=== PATIENT | female | born 1985 | race Caucasian/White ===

== ENCOUNTER 2017-08-07 11:44 | Emergency (ER) | payer OTHER ==
[2017-08-07 11:48] VITALS: BP 103/66; PULSE 66; TEMP 97.6; BMI 19.3
--- NOTE | 2017-08-07 13:17 | PDOC ---
History of Present Illness - General Chief Complaint: Back Pain Stated Complaint: BACK PAIN Time Seen by Provider: 08/07/17 12:27 History Source: Patient Exam Limitations: No Limitations - History of Present Illness Initial Comments: 08/07/17 13:15 32 yr female with low back pain for 3 days possibly after doing housework. Pt denies trauma, states nausea in the morning and urinary burning. Pt has low back pain across lower back radiates to left buttock. Pt denies fever or chills , neg vomiting. Severity: reports: mild Past History - Past Medical History Allergies/Adverse Reactions: Allergies Allergy/AdvReac Type Severity Reaction Status Date / Time No Known Allergies Allergy Verified 08/07/17 11:48 Home Medications: Ambulatory Orders Loratadine [Claritin -] 10 mg PO DAILY #30 tablet 02/28/13 Ibuprofen [Motrin -] 600 mg PO TID PRN #30 tablet 01/31/14 Ciprofloxacin [Cipro (Restricted To Id)] 250 mg PO BID #6 tablet 08/07/17 Methylprednisolone [Medrol Dose Connor] 4 mg PO ASDIR #21 tablet 08/07/17 Asthma: No Cancer: No Cardiac Disorders: No Diabetes: No HTN: No Seizures: No Thyroid Disease: No - Reproductive History (#): 3 Para: 2 Therapeutic (s) & number: No Spontaneous : 0 - Suicide/Smoking/Psychosocial Hx Smoking Status: No Smoking History: Never smoked Have you smoked in the past 12 months: No Number of Cigarettes Smoked Daily: 0 Information on smoking cessation initiated: No Hx Alcohol Use: No Drug/Substance Use Hx: No Substance Use Type: None Hx Substance Use Treatment: No *Physical Exam - Vital Signs Last Vital Signs Temp Pulse Resp BP Pulse Ox 97.6 F 66 17 103/66 100 08/07/17 11:47 08/07/17 11:47 08/07/17 11:47 08/07/17 11:47 08/07/17 11:47 - Physical Exam General Appearance: Yes: Nourished, Appropriately Dressed HEENT: positive: EOMI, CRISTINA, TMs Normal, Pharynx Normal Neck: positive: Supple. negative: Tender Respiratory/Chest: positive: Lungs Clear, Normal Breath Sounds. negative: Chest Tender Cardiovascular: positive: Regular Rhythm, Regular Rate Gastrointestinal/Abdominal: positive: Normal Bowel Sounds, Tender (suprapubic ) , Soft Musculoskeletal: positive: Normal Inspection, Decreased Range of Motion (ttp lubar spine paraspinal soft tissue , neg rash neg vetebral tenderness). negative: CVA Tenderness, CVA Tenderness (R), CVA Tenderness (L), Vertebral Tenderness Extremity: positive: Normal Capillary Refill, Normal Inspection, Normal Range of Motion Integumentary: positive: Normal Color, Dry, Warm Neurologic: positive: Fully Oriented, Alert, Normal Mood/Affect, Normal Response , Motor Strength 5/5, Other (neg SLR bilaterally, neg leg weakness). negative: Numbness, Sensory Deficit Medical Decision Making - Medical Decision Making 08/07/17 13:44 cc: low back pain for 3 days with nausea in the morning neg saddle anesthesia neg incontinence, urinary burning and urgency denies vaginal bleeding or discharge pain to suprapubic area neg SLR bilaterally will check urine toradol if negative r/o UTI, r/o kidney stone 08/07/17 14:14 08/07/17 15:[address] resulted negative for kidney stones *DC/Admit/Observation/Transfer Diagnosis at time of Disposition: Dysuria, Muscle strain - Discharge Dispostion Disposition: HOME Condition at time of disposition: Good - Prescriptions Prescriptions: Ciprofloxacin [Cipro (Restricted To Id)] 250 mg PO BID #6 tablet Methylprednisolone [Medrol Dose Connor] 4 mg PO ASDIR #21 tablet - Referrals Referrals: Varun Kidd MD [Primary Care Provider] - Dayne Moreno MD [Staff Physician] - - Patient Instructions Additional Instructions: apply warm compresses to lower back every 3-4hrs for 20 minutes take cipro for 3 days for possible urine infection, we will know when the urine culture returns in 2-3 days take naprosyn for pain as directed please follow up with the orthopedist in 3-4 days for follow up if your pain continues or worsens
[2017-08-07 14:00] LABS: URINE APPEARANCE SLCLOUDY; URINE BILIRUBIN NEGATIVE (NEGATIVE); URINE BLOOD 3+ (NEGATIVE); URINE COLOR LTYELLOW; URINE GLUCOSE (UA) NEGATIVE (NEGATIVE); URINE KETONE NEGATIVE (NEGATIVE); URINE NITRITE NEGATIVE (NEGATIVE); URINE PROTEIN NEGATIVE (NEGATIVE); URINE UROBILINOGEN NEGATIVE mg/dL (0.2-1.0)
[2017-08-07] MEDS ORDERED: KETOROLAC TROMETHAMINE 60 MG/2 ML VIAL IM ONE (14:06)
[2017-08-07] MEDS ORDERED: KETOROLAC TROMETHAMINE 60 MG/2 ML VIAL ONE (14:09)
[2017-08-07 14:11] LABS: URINE MUCUS RARE; URINE RBC 8 /hpf (0-3); URINE WBC 9 /hpf (3-5)
[2017-08-07 17:41] LABS: URINE LEUK ESTERASE TRACE (NEGATIVE)
== END 2017-08-07 15:25 | disposition home or self-care (01) ==
LOC: JERFT 11:44
PROC: 3E0233Z Introduction of Anti-inflammatory into Muscle, Percutaneous Approach (ICD-10-PCS; principal; 2017-08-07)
DX: S39.012A Strain of muscle, fascia and tendon of lower back, initial encounter (principal); X50.0XXA Overexertion from strenuous movement or load, initial encounter; Y93.E9 Activity, other interior property and clothing maintenance; Y92.038 Other place in apartment as the place of occurrence of the external cause
CPT/HCPCS: 36415; 74176; 81003; 81015; 84703; 87086; 87491; 87591; 96372; 99281-25

== ENCOUNTER 2018-01-24 12:06 | Emergency (ER) | payer OTHER ==
[2018-01-24 12:16] VITALS: BP 103/63; PULSE 76; TEMP 97.5; BMI 19.3
[2018-01-24] MEDS ORDERED: IBUPROFEN 600 MG TABLET (FP) PO ONE ×3 (13:00→13:49)
[2018-01-24 13:14] LABS: BASO % 1.2 % (0-2.0); EOS % 2.2 % (0-4.5); HEMATOCRIT 33.7 % (32.4-45.2); HEMOGLOBIN 11.1 GM/dL (10.7-15.3); LYMPH % 35.8 % (8-40); MCH 25.9 pg (25.7-33.7); MCHC 32.8 g/dl (32.0-36.0); MEAN CELL VOLUME 79.1 fl (80-96); MEAN PLT VOLUME 7.8 fl (7.5-11.1); MONO % 6.4 % (3.8-10.2); NEUT % 54.4 % (42.8-82.8); PLATELET COUNT 280 K/MM3 (134-434); RBC 4.26 M/mm3 (3.60-5.2); RDW 18.2 % (11.6-15.6); WHITE BLOOD COUNT 5.7 K/mm3 (4.0-10.0)
--- NOTE | 2018-01-24 13:14 | PDOC ---
History of Present Illness - General Chief Complaint: Pain, Acute Stated Complaint: FEET PAIN Time Seen by Provider: 01/24/18 12:23 History Source: Patient Exam Limitations: No Limitations - History of Present Illness Initial Comments: 01/24/18 13:19 33-year-old female with no past medical history presents to the ED with complaints of bilateral heel and ball of foot pain for the past week worsened with standing which she describes as a pins and needle sensation with sharp aching sensation at night. Denies change in activity, complaints of back pain sensory changes distally, skin discoloration or change in temperature. Timing/Duration: 1 week Severity: mild Associated Symptoms: reports: denies symptoms Past History - Travel Traveled outside of the country in the last 30 days: No - Past Medical History Allergies/Adverse Reactions: Allergies Allergy/AdvReac Type Severity Reaction Status Date / Time No Known Allergies Allergy Verified 01/24/18 12:13 Asthma: No Cancer: No Cardiac Disorders: No CVA: No COPD: No Diabetes: No HTN: No Seizures: No Thyroid Disease: No - Reproductive History (#): 3 Para: 2 Therapeutic (s) & number: No Spontaneous : 0 - Immunization History Immunization Up to Date: Yes - Suicide/Smoking/Psychosocial Hx Smoking Status: No Smoking History: Never smoked Have you smoked in the past 12 months: No Number of Cigarettes Smoked Daily: 0 Information on smoking cessation initiated: No Hx Alcohol Use: No Drug/Substance Use Hx: No Substance Use Type: None Hx Substance Use Treatment: No Patient Lives Alone: No Lives with/in: spouse/SO Review of Systems - Review of Systems Able to Perform ROS?: No Constitutional: No: Symptoms Reported Musculoskeletal: Yes: Other (bilateral heel pain) Integumentary: No: Symptoms Reported Neurological: No: Symptoms reported *Physical Exam - Vital Signs Last Vital Signs Temp Pulse Resp BP Pulse Ox 97.5 F L 76 17 103/63 99 01/24/18 12:13 01/24/18 12:13 01/24/18 12:13 01/24/18 12:13 01/24/18 12:13 - Physical Exam General Appearance: Yes: Nourished, Appropriately Dressed Neck: positive: Supple Respiratory/Chest: positive: Lungs Clear, Normal Breath Sounds. negative: Respiratory Distress, Accessory Muscle Use Cardiovascular: positive: Regular Rhythm, Regular Rate. negative: Murmur Gastrointestinal/Abdominal: positive: Soft. negative: Tenderness Extremity: positive: Normal Capillary Refill, Normal Inspection, Normal Range of Motion, Tender (over bilateral sole over calcaneus and generalized MTP joints /proximal phalanges). negative: Pedal Edema Integumentary: positive: Normal Color, Warm, Moist Neurologic: positive: Motor Strength 5/5. negative: Normal Mood/Affect ED Treatment Course - LABORATORY CBC & Chemistry Diagram: 01/24/18 13:10 01/24/18 13:10 - RADIOLOGY Radiology Studies Ordered: Category Date Time Status FOOT-LEFT [RAD] Stat Radiology 01/24/18 13:01 Ordered FOOT-RIGHT [RAD] Stat Radiology 01/24/18 13:01 Ordered Medical Decision Making - Medical Decision Making 01/24/18 13:31 Pt Patient bilateral heel pain worsened with standing for the past week. Patient exam had no sensory or neurovascular findings but did have tenderness over bilateral heels with no deformity edema, or redness. Patient was ordered for an x-ray, Motrin along with blood work to check for diabetes secondary to complaints of pins and needles and sharp pain without obvious causes. 01/24/18 13:43 Laboratory Tests 01/24/18 01/24/18 01/24/18 13:10 13:10 13:15 WBC 5.7 D Hgb 11.1 D Hct 33.7 MCV 79.1 L Plt Count 280 Neutrophils % 54.4 D Sodium 141 Potassium 3.8 Chloride 107 Carbon Dioxide 24 Anion Gap 10 BUN 12 Creatinine 0.5 L Creat Clearance w eGFR > 60 Random Glucose 94 Calcium 8.7 Total Bilirubin 0.2 D AST 12 L ALT 12 Serum , Qual Urine HCG, Qual Negative 01/24/18 13:17 WBC Hgb Hct MCV Plt Count Neutrophils % Sodium Potassium Chloride Carbon Dioxide Anion Gap BUN Creatinine Creat Clearance w eGFR Random Glucose Calcium Total Bilirubin AST ALT Serum , Qual Pending Urine HCG, Qual X-ray negative for acute findings. Patient will be discharged home with recommendations to take Motrin for discomfort and by orthotic gel inserts *DC/Admit/Observation/Transfer Diagnosis at time of Disposition: Foot pain, bilateral - Discharge Dispostion Disposition: HOME Condition at time of disposition: Improved - Referrals Referrals: Varun Kidd MD [Primary Care Provider] - - Patient Instructions Printed Discharge Instructions: DI for Foot Pain Additional Instructions: Please consider purchasing orthotic gel inserts to avoid heel pain and may take Motrin 600 mg every 8 hours for discomfort. You may also try soaking her feet in warm water to alleviate discomfort. - Post Discharge Activity
[2018-01-24 13:42] LABS: ALBUMIN 3.9 g/dl (3.4-5.0); ALK PHOS 49 U/L (45-117); ANION GAP 10 (8-16); BILIRUBIN,TOTAL 0.2 mg/dL (0.2-1.0); BLOOD UREA NITROGEN 12 mg/dL (7-18); CALCIUM 8.7 mg/dL (8.5-10.1); CHLORIDE 107 mmol/L (98-107); CO2 24 mmol/L (21-32); CREATININE 0.5 mg/dL (0.55-1.02); GLUCOSE,RANDOM 94 mg/dL (74-106); POTASSIUM 3.8 mmol/L (3.5-5.1); SGOT/AST 12 U/L (15-37); SGPT/ALT 12 U/L (12-78); SODIUM 141 mmol/L (136-145); TOT PROT 7.2 g/dl (6.4-8.2)
== END 2018-01-24 14:49 | disposition home or self-care (01) ==
LOC: JERFT 12:06
DX: M79.671 Pain in right foot (principal); M79.672 Pain in left foot
CPT/HCPCS: 36415; 73630-TC-LT; 73630-TC-RT-FY; 80053; 84703; 85025; 99281-25

== ENCOUNTER 2019-09-03 03:04 | Inpatient (IN) | payer OTHER ==
[2019-09-03] MEDS: OXYTOCIN 20 UNITS in 0.9% NS 20 UNIT/1,000 ML INFUS.BAG IV SCH (03:21)
[2019-09-03] MEDS ORDERED: AMPICILLIN NA/SULBACTAM NA 1.5 GM in SODIUM CHLORIDE 100 ML IVPB SCH ×2 (04:00→09:00)
[2019-09-03] MEDS ORDERED: ELECTROLYTE-148 SOLN 1,000 ML IV SCH (04:00)
--- NOTE | 2019-09-03 04:28 | HP ---
Past Medical History - Primary Care Physician PCP:: Sena Russell - Admission Chief Complaint: Labor History of Present Illness: 34 yo G P EDC 09/13/19 EGA 38.4 weeks admitted in active labor Hx of CS previous x3 for TOLAC + rom,no bleeding, History Source: Patient Limitations to Obtaining History: No Limitations - Past Medical History ...: 4 ...Para: 3 - Past Surgical History Past Surgical History: Yes: Hx Myomectomy: No Hx Transabdominal Cerclage: No - Smoking History Smoking history: Never smoked Have you smoked in the past 12 months: No Aproximately how many cigarettes per day: 0 - Alcohol/Substance Use Hx Alcohol Use: No History of Substance Use: reports: None Home Medications - Allergies Allergies/Adverse Reactions: Allergies Allergy/AdvReac Type Severity Reaction Status Date / Time No Known Allergies Allergy Verified 01/24/18 12:13 Review of Systems - Review of Systems Constitutional: reports: No Symptoms Eyes: reports: No Symptoms HENT: reports: No Symptoms Neck: reports: No Symptoms Cardiovascular: reports: No Symptoms Respiratory: reports: No Symptoms Gastrointestinal: reports: No Symptoms Genitourinary: reports: No Symptoms Breasts: reports: No Symptoms Reported Musculoskeletal: reports: No Symptoms Integumentary: reports: No Symptoms Neurological: reports: No Symptoms Endocrine: reports: No Symptoms Hematology/Lymphatic: reports: No Symptoms Psychiatric: reports: No Symptoms Physical Exam - Maternity Constitutional: Yes: Well Nourished, No Distress Neck: Yes: WNL Cardiovascular: Yes: WNL Lungs: Clear to auscultation - Abdominal Exam/OB Number of Fetuses: Single Presentation: Vertex Contractions: Yes Category: I - Vaginal Exam/OB Dilatation (cm): 10 Effacement (%): 100 Amniotic Membrane Status: Intact Presentation: Vertex/Position - Physical Exam Musculoskeletal: Yes: WNL Extremities: Yes: WNL Edema: No Problem List - Problems (1) Previous delivery, antepartum Problems reviewed: Yes Code(s): O34.219 - MATERNAL CARE FOR UNSP TYPE SCAR FROM PREVIOUS DEL (2) 38 weeks gestation of Code(s): Z3A.38 - 38 WEEKS GESTATION OF Assessment/Plan Prev CS TOLAC active labor eminent delivery 38 + week Plan
[2019-09-03] MEDS ORDERED: BENZOCAINE 20% 57 GM BOTTLE TP PRN (04:32)
[2019-09-03] MEDS ORDERED: WITCH HAZEL 50% (TUCKS) 40 PAD/JAR PAD TP PRN (04:32)
[2019-09-03] MEDS ORDERED: BENZOCAINE 28 GM HEMORRHOIDAL OINTMENT PR PRN (04:32)
[2019-09-03] MEDS ORDERED: BISACODYL 10 MG SUPP.RECT RC PRN (04:32)
[2019-09-03] MEDS ORDERED: METHYLERGONOVINE MALEATE 0.2 MG/1 ML AMP IM PRN (04:32)
--- NOTE | 2019-09-03 04:34 | PN ---
Delivery - Delivery Vaginal Delivery: No Problems (shoulder delivered with [facility] manuver without comp primary laceration repaired with 20 chromic), Other (post hemorrhage after deliver 500 cc bloods removed) Type of Anesthesia: Local Episiotomy/Laceration: 1st degree (repaired with 2 0 chromic) EBL (cc): 500 Delivery, Single - Stages of Labor Placenta: Yes: Spontaneous - Condition of Infant Gender: Female Position: OA - [place] Feeding Plan Benefits of Exclusively reinforced: Yes
[2019-09-03 04:57] LABS: VENOUS PC02 43.3 mmHg (38-52); VENOUS PH 7.34 (7.31-7.41)
[2019-09-03 04:58] LABS: VENOUS PO2 < 49 mmHg (28-48)
[2019-09-03 05:09] LABS: BASO % 0.5 % (0-2.0); EOS % 0.1 % (0-4.5); HEMATOCRIT 30.7 % (32.4-45.2); HEMOGLOBIN 9.7 GM/dL (10.7-15.3); LYMPH % 4.2 % (8-40); MCH 23.7 pg (25.7-33.7); MCHC 31.7 g/dl (32.0-36.0); MEAN CELL VOLUME 74.9 fl (80-96); MEAN PLT VOLUME 7.7 fl (7.5-11.1); MONO % 2.4 % (3.8-10.2); NEUT % 92.8 % (42.8-82.8); PLATELET COUNT 229 K/MM3 (134-434); RBC 4.11 M/mm3 (3.60-5.2); RDW 19.8 % (11.6-15.6); WHITE BLOOD COUNT 18.1 K/mm3 (4.0-10.0)
[2019-09-03 05:22] LABS: INR 1.04 (0.83-1.09); PROTHROMBIN TIME (PATIENT) 12.3 SEC (9.7-13.0)
[2019-09-03 05:32] LABS: BLOOD UREA NITROGEN 6.5 mg/dL (7-18); CALCIUM 8.2 mg/dL (8.5-10.1); CREATININE 0.5 mg/dL (0.55-1.3); POTASSIUM 3.7 mmol/L (3.5-5.1)
[2019-09-03 06:08] VITALS: BMI 23.6
--- NOTE | 2019-09-03 06:30 | PN ---
Progress Note (short form) - Note Progress Note: Pt with hemorrhage will give 1 unit of blood Problem List - Problems (1) Previous delivery, antepartum Code(s): O34.219 - MATERNAL CARE FOR UNSP TYPE SCAR FROM PREVIOUS DEL (2) 38 weeks gestation of Code(s): Z3A.38 - 38 WEEKS GESTATION OF
[2019-09-03] MEDS ORDERED: OXYTOCIN 20 UNITS in 0.9% NS 20 UNIT/1,000 ML INFUS.BAG IV ONE ×2 (06:46→16:20)
[2019-09-03] MEDS ORDERED: IBUPROFEN 600 MG TABLET (FP) PO ONE ×2 (07:17→15:00)
[2019-09-03] MEDS ORDERED: ACETAMINOPHEN 325 MG TABLET (FP) ONE ×2 (07:18→15:00)
[2019-09-03] MEDS: ACETAMINOPHEN 325 MG TABLET (FP) PO PRN ×3 (07:25→22:47)
[2019-09-03] MEDS: IBUPROFEN 600 MG TABLET (FP) PO PRN ×3 (07:25→22:46)
[2019-09-03 07:45] LABS: BASO % 0.1 % (0-2.0); HEMATOCRIT 30.6 % (32.4-45.2); HEMOGLOBIN 9.5 GM/dL (10.7-15.3); LYMPH % 3.2 % (8-40); MCH 23.4 pg (25.7-33.7); MCHC 31.1 g/dl (32.0-36.0); MEAN CELL VOLUME 75.3 fl (80-96); MEAN PLT VOLUME 8.1 fl (7.5-11.1); NEUT % 88.7 % (42.8-82.8); PLATELET COUNT 206 K/MM3 (134-434); RBC 4.07 M/mm3 (3.60-5.2); RDW 19.7 % (11.6-15.6); WHITE BLOOD COUNT 25.3 K/mm3 (4.0-10.0)
[2019-09-03 10:08] LABS: ANISOCYTOSIS 1+; MACROCYTOSIS 0; PLATELET ESTIMATE NORMAL
[2019-09-03 10:32] LABS: ANISOCYTOSIS 1+; MACROCYTOSIS 0; PLATELET ESTIMATE NORMAL
[2019-09-03] MEDS: AMPICILLIN NA/SULBACTAM NA 1.5 GM in SODIUM CHLORIDE 100 ML IVPB SCH ×2 (13:15→19:57)
[2019-09-03 22:00] LABS: BASO % 0.2 % (0-2.0); EOS % 0.2 % (0-4.5); HEMATOCRIT 27.7 % (32.4-45.2); HEMOGLOBIN 8.7 GM/dL (10.7-15.3); LYMPH % 8.4 % (8-40); MCH 23.9 pg (25.7-33.7); MCHC 31.4 g/dl (32.0-36.0); MEAN CELL VOLUME 76.2 fl (80-96); MEAN PLT VOLUME 8.3 fl (7.5-11.1); NEUT % 85.2 % (42.8-82.8); PLATELET COUNT 196 K/MM3 (134-434); RBC 3.63 M/mm3 (3.60-5.2); RDW 19.6 % (11.6-15.6)
[2019-09-03 22:56] LABS: ANISOCYTOSIS 2+; PLATELET ESTIMATE NORMAL
[2019-09-04] MEDS: AMPICILLIN NA/SULBACTAM NA 1.5 GM in SODIUM CHLORIDE 100 ML IVPB SCH ×2 (01:51→06:38)
[2019-09-04] MEDS: OXYTOCIN 20 UNITS in 0.9% NS 20 UNIT/1,000 ML INFUS.BAG IV SCH ×2 (01:51→05:00)
[2019-09-04 07:11] LABS: RUBELLA ANTIBODY,IGM <20.0 AU/mL (0.0-19.9)
--- NOTE | 2019-09-04 10:20 | PN ---
Post Progress Note - Subjective Subjective: 34 yo status post , seen and evaluated. Doing well. Post Day: 1 Type of Delivery: Vital Signs: Vital Signs Temperature 97.9 F 09/04/19 09:00 Pulse Rate 84 09/04/19 09:00 Respiratory Rate 18 09/04/19 09:00 Blood Pressure 100/59 L 09/04/19 09:00 O2 Sat by Pulse Oximetry (%) 99 09/03/19 07:45 Breast Exam: Yes: Soft Uterus: Yes: Fundus Firm Abdomen/GI: Yes: Abdomen soft, Tolerating PO Lochia: Yes: Rubra Lochia, amount: Moderate Extremities: Yes: Calves non-tender Activity: Ambulating - Labs Labs: CBC WBC 27.0 K/mm3 (4.0-10.0) H 09/03/19 21:15 RBC 3.63 M/mm3 (3.60-5.2) 09/03/19 21:15 Hgb 8.7 GM/dL (10.7-15.3) L 09/03/19 21:15 Hct 27.7 % (32.4-45.2) L 09/03/19 21:15 MCV 76.2 fl (80-96) L 09/03/19 21:15 MCH 23.9 pg (25.7-33.7) L 09/03/19 21:15 MCHC 31.4 g/dl (32.0-36.0) L 09/03/19 21:15 RDW 19.6 % (11.6-15.6) H 09/03/19 21:15 Plt Count 196 K/MM3 (134-434) 09/03/19 21:15 MPV 8.3 fl (7.5-11.1) 09/03/19 21:15 Absolute Neuts (auto) 23.0 K/mm3 (1.5-8.0) H 09/03/19 21:15 Neutrophils % 85.2 % (42.8-82.8) H 09/03/19 21:15 Neutrophils % (Manual) 80.6 % (42.8-82.8) 09/03/19 21:15 Band Neutrophils % 3.1 % 09/03/19 21:15 Lymphocytes % 8.4 % (8-40) D 09/03/19 21:15 Lymphocytes % (Manual) 10.2 % (8-40) D 09/03/19 21:15 Monocytes % 6.0 % (3.8-10.2) 09/03/19 21:15 Monocytes % (Manual) 2 % (3.8-10.2) L 09/03/19 21:15 Eosinophils % 0.2 % (0-4.5) D 09/03/19 21:15 Eosinophils % (Manual) 1.0 % (0-4.5) D 09/03/19 21:15 Basophils % 0.2 % (0-2.0) 09/03/19 21:15 Basophils % (Manual) 0.0 % (0-2.0) 09/03/19 21:15 Myelocytes % (Man) 0 % (0-2) 09/03/19 21:15 Promyelocytes % (Man) 0 % (0-2) 09/03/19 21:15 Blast Cells % (Manual) 0 % (0-0) 09/03/19 21:15 Nucleated RBC % 0 % (0-0) 09/03/19 21:15 Metamyelocytes 0 % (0-2) 09/03/19 21:15 Hypochromia 1+ 09/03/19 21:15 Platelet Estimate Normal 09/03/19 21:15 Polychromasia 1+ 09/03/19 21:15 Poikilocytosis 0 09/03/19 06:40 Anisocytosis 2+ 09/03/19 21:15 Microcytosis 1+ 09/03/19 06:40 Macrocytosis 0 09/03/19 06:40 Problem List - Problems (1) Status post vacuum-assisted vaginal delivery Problems reviewed: Yes Code(s): Z87.59 - PERSONAL HISTORY OF COMP OF PREG, CHLDBRTH AND THE PUERP Assessment/Plan Status post Stable Ambulation Analgesia as needed
--- NOTE | 2019-09-05 08:06 | DS ---
Physical Exam-CLINICAL NURSE REVIEWER Vital Signs: Vital Signs Temperature 98 F 09/04/19 22:00 Pulse Rate 97 H 09/04/19 22:00 Respiratory Rate 18 09/04/19 22:00 Blood Pressure 109/58 L 09/04/19 22:00 O2 Sat by Pulse Oximetry (%) 99 09/03/19 07:45 Constitutional: Yes: Well Nourished, No Distress Labs: CBC, BMP 09/03/19 21:15 09/03/19 04:30 Delivery - Delivery Vaginal Delivery: No Problems (shoulder delivered with [facility] manuver without comp primary laceration repaired with 20 chromic), Other (post hemorrhage after deliver 500 cc bloods removed) Type of Anesthesia: Local Episiotomy/Laceration: None EBL (cc): 500 Delivery, Single - Stages of Labor Date 1st Stage Initiatied: 09/03/19 Time 1st Stage Initiated: 01:00 Date 2nd Stage Initiated: 09/03/19 Time 2nd Stage Initiated: 03:10 Date of Delivery: 09/03/19 Time of Delivery: 03:18 Time Placenta Delivered: 03:21 Placenta: Yes: Spontaneous - Condition of Infant Block Cleaner/Advanced Practice Rn Present: No Infant Gender: Female Weight: 7 lb 1 oz Position: OA Total Hours ROM (Hrs/Mins): 2hrs.21mins - 1 Minute Total Score: 9 5 Minutes Total Score: 9 - Feeding Plan Initial Plan: Exclusive throughout hospitalization Benefits of Exclusively reinforced: Yes Discharge Summary Problems reviewed: Yes Reason For Visit: LABOR Current Active Problems 38 weeks gestation of (Acute) Previous delivery, antepartum (Acute) Status post vacuum-assisted vaginal delivery (Acute) Procedures: Principal: normal vaginal delivery Condition: Good - Instructions Diet, Activity, Other Instructions: Physical activity Resume your normal everyday activity as tolerated no heavy lifting or exercise until seen by your surgeon. You may walk unlimited naun of and climb stairs. You may resume driving the car when you feel safe and comfortable behind the wheel. No sexual activity as instructed. Wound care If you have a bandage, leave it on, and keep dry for 48-72 hours. After that time discard the outer bandage. If they are tapes on the skin under the out of bandage leave them in place. They will peel off in the next 7 to 10 days. Do Not Peel them off. You may shower the day after surgery. If there are tapes present on the skin, you may shower over them. Diet There are no dietary restrictions. Eat healthy, high-fiber foods. Drink 6 to 8 glasses of liquid each day. This will assist in keeping your bowels are regular. Pain management You may take Tylenol or acetaminophen or Ibuprofen (for example, Motrin, Advil etc.) from my pain prescription medication is ordered should be taken as prescribed for moderate to severe pain. Call MD for any of the following: Severe pain not relieved by medication Fever of 101 or higher Excessive bleeding or drainage on dressing Inability to urinate Referrals: Sena Russell MD [Staff Physician] - Disposition: HOME - Home Medications Comprehensive Discharge Medication List: Ambulatory Orders Vitamins (Sjr) - 1 tab PO DAILY 09/03/19
[2019-09-05] MEDS: IBUPROFEN 600 MG TABLET (FP) PO PRN (08:51)
[2019-09-05] MEDS: ACETAMINOPHEN 325 MG TABLET (FP) PO PRN (08:52)
[2019-09-05 09:03] VITALS: BP 100/64; PULSE 89; TEMP 98.1
[2019-09-05 10:38] LABS: BASO % 0.4 % (0-2.0); EOS % 1.5 % (0-4.5); HEMATOCRIT 28.6 % (32.4-45.2); HEMOGLOBIN 9.1 GM/dL (10.7-15.3); LYMPH % 15.7 % (8-40); MCH 24.1 pg (25.7-33.7); MCHC 31.8 g/dl (32.0-36.0); MEAN PLT VOLUME 7.3 fl (7.5-11.1); MONO % 3.5 % (3.8-10.2); NEUT % 78.9 % (42.8-82.8); PLATELET COUNT 252 K/MM3 (134-434); RBC 3.76 M/mm3 (3.60-5.2); RDW 19.8 % (11.6-15.6); WHITE BLOOD COUNT 15.6 K/mm3 (4.0-10.0)
== END 2019-09-05 12:47 | disposition home or self-care (01) | DRG 560 ==
LOC: JLDR 03:04 → J3W 16:15
PROVIDERS: ADMIT Obstetrics & Gynecology; ATTEND Obstetrics & Gynecology
PROC: 10E0XZZ Delivery of Products of Conception, External Approach (ICD-10-PCS; principal; 2019-09-03)
PROC: 0W8NXZZ Division of Female Perineum, External Approach (ICD-10-PCS; 2019-09-03)
PROC: 0HQ9XZZ Repair Perineum Skin, External Approach (ICD-10-PCS; 2019-09-03)
PROC: 30233N1 Transfusion of Nonautologous Red Blood Cells into Peripheral Vein, Percutaneous Approach (ICD-10-PCS; 2019-09-03)
DX: O70.0 First degree perineal laceration during delivery (principal); Z3A.38 38 weeks gestation of pregnancy; O72.1 Other immediate postpartum hemorrhage; O99.013 Anemia complicating pregnancy, third trimester; O34.211 Maternal care for low transverse scar from previous cesarean delivery; N85.8 Other specified noninflammatory disorders of uterus; Z37.0 Single live birth
CPT/HCPCS: 36415; 36430; 36511; 36600; 59409; 80048; 82803; 85025; 85610; 85730; 86593; 86762; 86850; 86900; 86901; 86922; 87340; 87389; P9038; P9058